=== PATIENT | male | born 1970 | race African-American/Black ===

== ENCOUNTER 2017-01-09 14:32 | Emergency (ER) | payer SELFPAY ==
[~2017-01-09] VITALS: Ht 185.4 cm; Wt 100.0 kg
[2017-01-09] MEDS ORDERED: SODIUM CHLORIDE 0.9% 1,000 ML IV ONE (14:53)
[2017-01-09] MEDS ORDERED: KETOROLAC 30MG/ML VIAL IV STA (14:53)
[2017-01-09 15:26] LABS: BASOPHILS % 1.4 % (0.0-2.0); EOSINOPHILS % 11.6 % (0.0-5.0); HEMATOCRIT. 36.9 % (42.0-52.0); HEMOGLOBIN. 12.4 g/dL (14.0-18.0); LYMPHOCYTES % 15.5 % (20.0-50.0); MEAN CORPUSCULAR HEMOGLOBIN 29.1 pg (28.0-32.0); MEAN CORPUSCULAR VOLUME 86.8 fL (80.0-94.0); MONOCYTES % 6.1 % (2.0-8.0); NEUTROPHILS % 65.4 % (40.0-76.0); PLATELET 230 x1000/uL (130-400); RED BLOOD CELL COUNT 4.25 mill/uL (4.7-6.1)
[2017-01-09 15:30] LABS: PROTHROMBIN TIME 10.9 sec
[2017-01-09 15:37] LABS: CARBON DIOXIDE 31 mEq/L (21-32); CHLORIDE 109 mEq/L (98-107)
[2017-01-09 15:47] LABS: CLARITY URINE CLEAR (CLEAR); COLOR URINE YELLOW (YELLOW); GLUCOSE URINE NEGATIVE (NEGATIVE); KETONES URINE NEGATIVE (NEGATIVE); LEUKOCYTE ESTERASE URINE NEGATIVE (NEGATIVE); NITRITE URINE NEGATIVE (NEGATIVE); OCCULT BLOOD URINE NEGATIVE (NEGATIVE); PROTEIN URINE NEGATIVE (NEGATIVE); SPECIFIC GRAVITY URINE 1.027 (1.005-1.030)
[2017-01-09 16:39] VITALS: BP 152/98
== END 2017-01-09 16:42 | disposition home or self-care (01) ==
LOC: ER 14:50
DX: R53.1 Weakness (principal); R10.31 Right lower quadrant pain; F41.9 Anxiety disorder, unspecified; I10 Essential (primary) hypertension; F12.10 Cannabis abuse, uncomplicated
CPT/HCPCS: 36415; 71010; 74176; 80053; 81003; 83690; 85025; 85610; 93005; 96361; 96374; 99285; J1885; J7030; Z7610

== ENCOUNTER 2017-01-15 03:27 | Emergency (ER) | payer SELFPAY ==
[~2017-01-15] VITALS: Ht 172.7 cm; Wt 95.0 kg
[2017-01-15] MEDS ORDERED: IBUPROFEN 800MG TABLET PO ONE (04:15)
[2017-01-15 05:17] VITALS: BP 165/117
== END 2017-01-15 05:53 | disposition home or self-care (01) ==
LOC: ER 03:27
DX: S93.601A Unspecified sprain of right foot, initial encounter (principal); I10 Essential (primary) hypertension; F41.9 Anxiety disorder, unspecified; F17.210 Nicotine dependence, cigarettes, uncomplicated; F12.10 Cannabis abuse, uncomplicated; Z98.890 Other specified postprocedural states; W22.09XA Striking against other stationary object, initial encounter; Y93.66 Activity, soccer; Y92.39 Other specified sports and athletic area as the place of occurrence of the external cause
CPT/HCPCS: 73590; 73610; 73630; 99284; Z7610

== ENCOUNTER 2017-01-25 20:13 | Emergency (ER) | payer SELFPAY ==
[~2017-01-25] VITALS: Ht 185.4 cm; Wt 100.0 kg
[2017-01-25] MEDS ORDERED: HYDROCHLOROTHIAZIDE 25MG TABLET PO ONE (23:30)
[2017-01-26 00:03] VITALS: BP 132/87
== END 2017-01-26 00:11 | disposition home or self-care (01) ==
LOC: ER 21:27
DX: R07.9 Chest pain, unspecified (principal); I10 Essential (primary) hypertension; F12.10 Cannabis abuse, uncomplicated; F17.200 Nicotine dependence, unspecified, uncomplicated; Z02.89 Encounter for other administrative examinations
CPT/HCPCS: 71010; 93005; 99284; Z7610

== ENCOUNTER 2022-06-28 14:18 | Emergency (ER) | payer MEDICAID ==
[~2022-06-28] VITALS: Ht 175.3 cm; Wt 106.0 kg
[2022-06-28 15:10] VITALS: BP 162/114
[2022-06-28] MEDS ORDERED: IBUPROFEN 600MG TABLET PO ONE (16:45)
[2022-06-28] MEDS ORDERED: HYDROCODONE/ACETAMINOPHEN 10/325MG TABLET PO ONE (17:45)
[2022-06-28] MEDS ORDERED: HYDR-4001 MT (17:46)
== END 2022-06-28 18:25 | disposition home or self-care (01) ==
LOC: ER 14:18
DX: S52.92XA Unspecified fracture of left forearm, initial encounter for closed fracture (principal); F12.10 Cannabis abuse, uncomplicated; I10 Essential (primary) hypertension; W18.30XA Fall on same level, unspecified, initial encounter; Y93.89 Activity, other specified; Y92.89 Other specified places as the place of occurrence of the external cause; Y99.8 Other external cause status
CPT/HCPCS: 29125; 73080; 73090; 99284

== ENCOUNTER 2022-07-08 12:06 | Emergency (ER) | payer MEDICAID ==
[~2022-07-08 12:06] MED LIST: HYDR-4001 MT
== END 2022-07-08 12:56 | disposition left against medical advice (07) ==
LOC: ER 12:40
DX: Z53.21 Procedure and treatment not carried out due to patient leaving prior to being seen by health care provider (principal)